=== PATIENT | male | born 1990 | race Caucasian/White ===

== ENCOUNTER 2016-12-23 18:23 | Emergency (ER) | payer MEDICAID ==
[2016-12-23 18:30] VITALS: BP 122/74; PULSE 74; RESP 16; TEMP 97.9; O2SAT 95
--- NOTE | 2016-12-23 18:58 | EDPHY ---
H & P Stated Complaint: R ankle pain Time Seen by Provider: 12/23/16 18:56 - Personal History Current Tetanus/Diphtheria Vaccine: Yes Current Tetanus Diphtheria and Acellular Pertussis (TDAP): Yes - Medical/Surgical History Hx Asthma: No Hx Chronic Respiratory Disease: No Hx Diabetes: No Hx Cardiac Disease: No Hx Renal Disease: No Hx Cirrhosis: No Hx Alcoholism: No Hx HIV/AIDS: No Hx Splenectomy or Spleen Trauma: No Other PMH: depression - Social History Smoking Status: Light smoker Constitutional: Initial Vital Signs Temperature (C) 36.6 C 12/23/16 18:28 Heart Rate 74 12/23/16 18:28 Respiratory Rate 16 12/23/16 18:28 Blood Pressure 122/74 H 12/23/16 18:28 O2 Sat (%) 95 12/23/16 18:28 O2 Delivery Mode Room Air Allergies/Adverse Reactions: No Known Allergies Allergy (Unverified 12/23/16 18:30) Medical Decision Making - Diagnostics Imaging Results: Imaging Impressions Ankle X-Ray 12/23/16 19:24 Impression: Possible subtle lytic lesion in the distal tibia. This could potentially indicate a site of infection. If clinically indicated consider CT or MRI of the ankle. Imaging: I viewed and interpreted images myself ED Course/Re-evaluation: CHIEF COMPLAINT: Ankle pain, STD check HISTORY OF PRESENT ILLNESS: The patient is a 26 y/o male complaining of right ankle pain of unknown onset. He cannot identify any obvious precipitating trauma , but then says he thinks he sprained it. He is unwilling to give any other information about this pain. He also says, "I just needed to come in to see if I 'm clear of any sexually transmitted diseases." He states he was recently on medication for gonorrhea. He is a poor historian. REVIEW OF SYSTEMS: A 10 point review of systems was performed and is negative with the exception of the elements mentioned in the history of present illness. PHYSICAL EXAM: HR, BP, O2 Sat, RR. Temp noted General Appearance: Alert, well hydrated, appropriate, and non-toxic appearing. Head: Atraumatic without scalp tenderness or obvious injury Eyes: Pupils equal, round, reactive to light and accommodation, EOMI, no trauma , no injection. Nose: Atraumatic, no rhinorrhea, clear. Throat: There is no erythema or exudates, no lesions, normal tonsils, mucus membranes moist. Neck: Supple, nontender, no lymphadenopathy. Respiratory: No retractions, no distress, no wheezes, and no accessory muscle use. Lungs are clear to auscultation bilaterally. Cardiovascular: Regular rate and rhythm, no murmurs, rubs, or gallops. Good capillary refill all extremities. Gastrointestinal: Abdomen is soft, nontender, non-distended, no masses, no rebound, no guarding, no peritoneal signs. Musculoskeletal: Normal active ROM of all extremities, atraumatic. Neurological: Alert, appropriate, and interactive. Nonfocal neuro exam. Skin: No rashes, good turgor, no nodules on palpation. Past medical history: Gonorrhea Past surgical history: denies Family history: noncontributory Social history: from [place] DIAGNOSTICS/PROCEDURES/CRITICAL CARE TIME: Right ankle x-ray: possible lytic lesion distal tibia DIFFERENTIAL DIAGNOSIS: The differential diagnosis for the patient's pain included but was not limited to strain, sprain, contusion, ligamentous injury. MEDICAL DECISION MAKING: This is a 26 y/o male who presents requesting an ankle x-ray for ankle pain and repeat STD testing for gonorrhea. His exam is completely unremarkable. No visible trauma or swelling. Patient can walk and bear weight normally. Plan for right ankle x-ray and urine GC. X-ray is unremarkable. Discussed findings with the patient. He will be discharged with standard sprain care instructions and recommendation to follow up with orthopedist for possible bone cyst. He's been instructed to call back in a few days for his GC results. He is comfortable with this plan. Departure - Departure Disposition: Home, Routine, Self-Care Clinical Impression: Lytic lesion of bone on x-ray Ankle sprain Qualifiers: Encounter type: initial encounter Involved ligament of ankle: other ligament Laterality: right Qualified Code(s): S93.491A - Sprain of other ligament of right ankle, initial encounter Condition: Good Instructions: Ankle Sprain (ED) Additional Instructions: 1. Apply ice to sore areas. Take 600mg ibuprofen every 6-8 hours as needed for pain for the next few days. 2. Follow up with an orthopedist in the next week for possible bone cyst in your ankle. 3. Call the ED in 48 hours for results of your urine test. Referrals: [facility],. [Clinic] - As per Instructions Cornel Florez MD [Medical Doctor] - As per Instructions Report Scribed for: Galo Navarro Report Scribed by: Aracely Cote Date of Report: 12/23/16 Time of Report: 19:32
[2016-12-26 13:09] LABS: CHLAMYDIA AMPLIFICATION GENPRB NEGATIVE (NEGATIVE)
== END 2016-12-23 20:00 | disposition home or self-care (01) ==
DX: S93.491A Sprain of other ligament of right ankle, initial encounter (principal); R93.7 Abnormal findings on diagnostic imaging of other parts of musculoskeletal system; F17.200 Nicotine dependence, unspecified, uncomplicated; X58.XXXA Exposure to other specified factors, initial encounter

== ENCOUNTER 2016-12-31 06:31 | Emergency (ER) | payer MEDICAID ==
--- NOTE | 2016-12-31 06:44 | EDPHY ---
H & P Source: Patient, EMS, Old records Exam Limitations: No limitations - Medical/Surgical History Hx Asthma: No Hx Chronic Respiratory Disease: No Hx Diabetes: No Hx Cardiac Disease: No Hx Renal Disease: No Hx Cirrhosis: No Hx Alcoholism: No Hx HIV/AIDS: No Hx Splenectomy or Spleen Trauma: No Other PMH: depression - Family History Significant Family History: No pertinent family hx - Social History Smoking Status: Light smoker Alcohol Use: Occasionally Drug Use: Marijuana Time Seen by Provider: 12/31/16 06:39 HPI/ROS: CHIEF COMPLAINT: Paranoia HISTORY OF PRESENT ILLNESS: The patient is a 26-year-old homeless man with a history of unknown psychiatric disorder who he asked bystanders to call 911 because someone is poisoning him. He was seen here a few weeks ago for ankle sprain and wanting to be checked for gonorrhea. Otherwise no previous visits to this hospital. He does not take any medications. He denies recent drug or alcohol use. No recent fevers or illness. No trauma. He is not in any pain. REVIEW OF SYSTEMS: Constitutional: denies: chills, fever, recent illness, recent injury EENTM: denies: blurred vision, double vision, nose congestion Respiratory: denies: cough, shortness of breath Cardiac: denies: chest pain, irregular heart rate, lightheadedness, palpitations Gastrointestinal/Abdominal: denies: abdominal pain, diarrhea, nausea, vomiting, blood streaked stools Genitourinary: denies: dysuria, frequency, hematuria, pain Musculoskeletal: denies: joint pain, muscle pain Skin: denies: lesions, rash, jaundice, bruising Neurological: denies: headache, numbness, paresthesia, tingling, dizziness, weakness Hematologic/Lymphatic: denies: blood clots, easy bleeding, easy bruising Immunologic/allergic: denies: HIV/AIDS, transplant EXAM: GENERAL: Disheveled, staring at the wall HEAD: Atraumatic, normocephalic. EYES: Pupils equal round and reactive to light, extraocular movements intact, sclera anicteric, conjunctiva are normal. ENT: TMs normal, nares patent, oropharynx clear without exudates. Moist mucous membranes. NECK: Normal range of motion, supple without lymphadenopathy or JVD. LUNGS: Breath sounds clear to auscultation bilaterally and equal. No wheezes rales or rhonchi. HEART: Regular rate and rhythm without murmurs, rubs or gallops. ABDOMEN: Soft, nontender, normoactive bowel sounds. No guarding, no rebound. No masses appreciated. BACK: No CVA tenderness, no spinal tenderness, step-offs or deformities EXTREMITIES: Normal range of motion, no pitting or edema. No clubbing or cyanosis. NEUROLOGICAL: Cranial nerves II through XII grossly intact. Normal speech, was able to ambulate on scene but states here that he cannot. 5/5 strength, normal movement in all extremities, normal sensation PSYCH: Slow to answer questions, slow movement SKIN: Warm, dry, normal turgor, no visible rashes or lesions. (Mir Restrepo) Constitutional: Initial Vital Signs Temperature (C) 36.4 C 12/31/16 06:47 Heart Rate 73 12/31/16 06:47 Respiratory Rate 16 12/31/16 06:47 Blood Pressure 127/81 H 12/31/16 06:47 O2 Sat (%) 93 12/31/16 06:47 O2 Delivery Mode Room Air Allergies/Adverse Reactions: No Known Allergies Allergy (Unverified 12/23/16 18:30) Home Medications: Medication Instructions Recorded NK [No Known Home Meds] 12/31/16 Medical Decision Making ED Course/Re-evaluation: 0036AM: Patient has been accepted at [facility] by [facility]. EMTALA form filled out. Appropriate transfer be set up. (Sean Morris) Lab work has been ordered. The patient will require mental health evaluation. He has been placed on hold. Care transferred to Dr. Arturo Mahajan. 4:30 p.m. the patient escalated and I ordered Haldol and Ativan but he was calmed down by security and took Zyprexa Zydis. 4:50 p.m. the patient became extremely combative and was tazed by police. He was given Haldol and Ativan. 10:00 p.m. the patient remains sedated. We are awaiting psychiatric placement. He has been evaluated. Care transferred to Dr. Sean Morris. (Mir Restrepo) Differential Diagnosis: Partial list of the Differential diagnosis considered include but were not limited to; schizophrenia, substance abuse, bipolar and although unlikely based on the history and physical exam, I also considered head injury, infection , seizure. (Mir Restrepo) - Data Points Laboratory Results: Laboratory Results 12/31/16 06:55 12/31/16 06:55 Medications Given: Discontinued Medications Haloperidol Lactate (Haldol Injection) 10 mg IM EDNOW ONE Stop: 12/31/16 16:54 Last Admin: 12/31/16 16:55 Dose: 10 mg Lorazepam (Ativan) 2 mg PO EDNOW ONE Stop: 12/31/16 16:11 Last Admin: 12/31/16 16:11 Dose: 2 mg Lorazepam (Ativan Injection) 2 mg IM EDNOW ONE Stop: 12/31/16 16:54 Last Admin: 12/31/16 16:55 Dose: 2 mg Nicotine (Nicoderm Cq) 21 mg TD EDNOW ONE Stop: 12/31/16 16:03 Last Admin: 12/31/16 16:09 Dose: 21 mg Olanzapine (Zyprexa Zydis) 10 mg PO EDNOW ONE Stop: 12/31/16 16:32 Last Admin: 12/31/16 16:33 Dose: 10 mg Departure - Departure Disposition: Other Psych, Not [facility] Clinical Impression: Acute psychosis Condition: Fair Referrals: Patient,NotPresent [Primary Care Provider] - As per Instructions
[2016-12-31 07:04] LABS: % IMMATURE GRANULYOCYTES 0.4 % (0.0-1.1); ABSOLUTE IMMATURE GRANULOCYTES 0.04 10^3/uL (0.00-0.10); ADD DIFF? NO; ADD MORPH? NO; ADD SCAN? NO; ATYPICAL LYMPHOCYTE FLAG 20 (0-99); FRAGMENT RBC FLAG 0 (0-99); HEMATOCRIT 44.2 % (40.0-51.0); HEMOGLOBIN 15.5 g/dL (13.7-17.5); LEFT SHIFT FLG 0 (0-99); LIPEMIA HEMOLYSIS FLAG 90 (0-99); MEAN CELL HEMOGLOBIN 29.6 pg (27.9-34.1); MEAN CELL HEMOGLOBIN CONCENTR. 35.1 g/dL (32.4-36.7); MEAN CELL VOLUME 84.4 fL (81.5-99.8); MEAN PLATELET VOLUME 10.9 fL (8.7-11.7); PLATELET CLUMPS FLAG 0 (0-99); PLATELET COUNT 224 10^3/uL (150-400); RED BLOOD CELL COUNT 5.24 10^6/uL (4.40-6.38); RED CELL DISTRIBUTION WIDTH 12.6 % (11.5-15.2)
[2016-12-31 07:20] LABS: ANION GAP 14 mEq/L (8-16); CALCIUM 9.7 mg/dL (8.5-10.4); CARBON DIOXIDE 21 mEq/l (22-31); CHLORIDE 109 mEq/L (97-110); CREATININE 0.9 mg/dL (0.7-1.3); ETHANOL SERUM < 10 mg/dL (0-10); GLOMERULAR FILTRATION RATE > 60; GLUCOSE 94 mg/dL (70-100); POTASSIUM 3.9 mEq/L (3.5-5.2); SODIUM 144 mEq/L (134-144)
[2016-12-31] MEDS ORDERED: NICOTINE 21 MG/24 HR PATCH TD ONE ×2 (16:02)
[2016-12-31] MEDS ORDERED: LORazepam 1 MG TAB ONE (16:07)
[2016-12-31] MEDS ORDERED: LORazepam 1 MG TAB PO ONE (16:10)
[2016-12-31] MEDS ORDERED: HALOPERIDOL LACT 5 MG/ML INJ ONE ×2 (16:20→16:48)
[2016-12-31] MEDS ORDERED: LORazepam 2 MG/ML INJ ONE ×2 (16:21→16:48)
[2016-12-31] MEDS ORDERED: OLANZapine DISINTEGR 10 MG TAB ONE (16:28)
[2016-12-31] MEDS ORDERED: OLANZapine DISINTEGR 10 MG TAB PO ONE (16:31)
[2016-12-31] MEDS ORDERED: HALOPERIDOL LACT 5 MG/ML INJ IM ONE (16:53)
[2016-12-31] MEDS ORDERED: LORazepam 2 MG/ML INJ IM ONE (16:53)
[2016-12-31 19:40] VITALS: RESP 12
[2016-12-31 23:35] VITALS: O2SAT 95
[2017-01-01 01:05] VITALS: BP 98/49; PULSE 55; TEMP 97
== END 2017-01-01 01:02 ==
LOC: EDUNIT#
DX: F23 Brief psychotic disorder (principal); F17.200 Nicotine dependence, unspecified, uncomplicated
CPT/HCPCS: 80305; G0480; J2060